=== PATIENT | male | born 1940 | race Caucasian/White ===

== ENCOUNTER → 2017-12-09 | Outpatient (CLI) | payer OTHER ==
[~2017-12-09] MED LIST: ASPIR 8181 M1 PO; ASPIR-LOW81 MG PO; ASPIRIN EC325 MG PO; CELECOXIB200 MG PO; CRESTOR10 MG PO; DAILY MULTIPLE1 EACH PO; DOCUSATE SODIU100 MG PO; ELIQUIS5 MG PO; ENDOCET 5-3251 EACH PO; FENOFIBRATE160 M1 PO; GLUCOPHAGE500 MG PO; HYDROCODON-ACE1 EAC7 PO; HYDROCODON-ACE1 EAC9 PO; IRON325 M1 PO; JANUVIA100 MG PO; K-DUR20 MEQ PO; LAMOTRIGINE200 MG PO; LASIX20 MG PO; LEVAQUIN750 MG PO; LORAZEPAM2 MG PO; METOPROLOL SUCC25 MG PO; MUCINEX600 MG PO; PRINIVIL20 MG PO; TRAMADOL HCL50 MG PO; ULTRAM50 MG PO; VENLAFAXINE HC150 M1 PO; VENTOLIN HFA18 GM IH; ZYRTEC10 M2 PO
== END | disposition home or self-care (01) ==
LOC: AMB 13:40
PROC: 0HQ7XZZ Repair Abdomen Skin, External Approach (ICD-10-PCS; principal; 2017-12-09)
PROC: 0HB7XZZ Excision of Abdomen Skin, External Approach (ICD-10-PCS; principal; 2017-12-09)
DX: L72.0 Epidermal cyst (principal); I10 Essential (primary) hypertension; E11.9 Type 2 diabetes mellitus without complications; I48.0 Paroxysmal atrial fibrillation; G47.33 Obstructive sleep apnea (adult) (pediatric); I42.0 Dilated cardiomyopathy; Z79.84 Long term (current) use of oral hypoglycemic drugs; Z79.82 Long term (current) use of aspirin; Z79.01 Long term (current) use of anticoagulants
CPT/HCPCS: 88304